=== PATIENT | male | born 1960 | race Caucasian/White ===

== ENCOUNTER 2019-05-03 11:31 | Inpatient (IN) | payer OTHER ==
[~2019-05-03] VITALS: Ht 180.3 cm; Wt 72.6 kg
[~2019-05-03 11:31] MED LIST changes: -ALBU3IS INH; -ALBU90OI INH; -AZIT500 PO; -BENZ100A PO; -FLUTICASONE-SA1 EAC2 INH; -GUAI600T33 PO; -PSEU120ER PO; -Prednisone10 MG PO
[2019-05-03 13:11] LABS: Base Excess Venous 4.5 mmol/L; Bicarbonate Venous 27.4 mmol/L (24.0-30.0); PCO2 Venous 48.2 mmHg (38-42); pH Blood Venous 7.39 (7.34-7.37)
--- NOTE | 2019-05-03 17:09 | NUR ---
TRANSFER NOTE RECEIVED HANDOFF FROM ED NURSE [place]. PT TRANSFERED TO FLOOR WNL. 2 LPM O2. PT IS A&O X4, INDEPENDENT IN THE ROOM. NS GIVEN VIA IV 150 ML/HR. TELEMETRY UNIT ARRIVED TO FLOOR, PLACED BY POND WORKER. PT AND FAMILY ORIENTED TO UNIT.
--- NOTE | 2019-05-03 17:48 | NUR ---
SHIFT SUMMARY PT IS A&O X4. INDEPENDENT IN ROOM. HE WAS ADMITTED FROM ER TODAY. HE DESATURATES WHEN O2 IS REMOVED. NORMALLY ROOM AIR AT HOME. TELEMETRY IS IN PLACE. 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 HIS FAMILY STATES HE WORKS MANY LONG HOURS. 2 LPM O2 VIA NC IN HOSPITAL. HE HAS A GOOD APPETITE AND IS EATING WELL HERE. HE DID REPORT A LOOSE BM FOLLOWING ADMIT TO THIS FLOOR. NS IS INFUSING @ 150 ML/HR.
[2019-05-03 19:37] LABS: Adenovirus Not Detected (NOT DETECT); Bordetella pertussis Not Detected (NOT DETECT); Chlamydophila pneumoniae Not Detected (NOT DETECT); Coronavirus 229E Not Detected (NOT DETECT); Coronavirus HKU1 Not Detected (NOT DETECT); Coronavirus NL63 Not Detected (NOT DETECT); Coronavirus OC43 Not Detected (NOT DETECT); Human Metapneumovirus Not Detected (NOT DETECT); Human Rhinovirus/Enterovirus Detected (NOT DETECT); Influenza A Not Detected (NOT DETECT); Influenza A/2009-H1 Not Detected (NOT DETECT); Influenza A/H1 Not Detected (NOT DETECT); Influenza A/H3 Not Detected (NOT DETECT); Influenza B Not Detected (NOT DETECT); Mycoplasma pneumoniae Not Detected (NOT DETECT); Parainfluenza Virus 1 Not Detected (NOT DETECT); Parainfluenza Virus 2 Not Detected (NOT DETECT); Parainfluenza Virus 3 Not Detected (NOT DETECT); Parainfluenza Virus 4 Not Detected (NOT DETECT); Respiratory Syncytial Virus Not Detected (NOT DETECT)
--- NOTE | 2019-05-04 04:16 | NUR ---
Rn summary: Patient is alert and oriented. Pt primary language is [place] but speaks Rwandan well. Pt has course insp/exp/wheezes upper lobes and fine wheezes lower lobes. Pt has occational course cough. Pt was on 2L at beginning of shift, respirtory increased him to 3 liters after a treatment. When pt sleeping, he is a mouth breather, O2 increased to 4 liters to keep him at 89-90% while at rest. Pt is up to BR with SBA. He is steady on his feet. Pt SOB seems to recover quickly after he is up to BR, sats return to 90 after 1-2 minutes. Pt has only some pain from cough. Telementry has shown NSR rate in the 70-80's. Call light in reach, he uses it appropriately.
[2019-05-04 05:32] LABS: BASOPHILS PERCENT AUTO 0 % (0-2); EOSINOPHILS PERCENT AUTO 0 % (0-6); Hematocrit 41.9 % (37.0-53.0); Hemoglobin 13.7 g/dL (13.5-17.5); IMMATURE GRAN ABSOLUTE AUTO 0.04 K/mm3 (0.00-0.10); IMMATURE GRAN PERCENT AUTO 1 % (0-1); LYMPHOCYTES ABSOLUTE AUTO 0.65 K/mm3 (0.84-5.20); LYMPHOCYTES PERCENT AUTO 8 % (21-46); MONOCYTES ABSOLUTE AUTO 0.33 K/mm3 (0.16-1.47); MONOCYTES PERCENT AUTO 4 % (4-13); Mean Corpuscular HGB 30.6 pg (26.0-34.0); Mean Corpuscular HGB Conc 32.7 g/dL (31.5-36.5); Mean Platelet Volume 11.7 fL (9.1-12.4); NEUTROPHILS ABSOLUTE AUTO 6.79 K/mm3 (1.96-9.15); NEUTROPHILS PERCENT AUTO 87 % (41-73); Platelet Count 154 K/mm3 (150-400); RDW Standard Deviation 48.6 fL (35.1-46.3); Red Blood Cell Count 4.48 M/mm3 (4.30-5.90); White Blood Cell Count 7.81 K/mm3 (4.00-11.30)
[2019-05-04 05:36] LABS: Mean Corpuscular Volume 94 fL (80-100)
[2019-05-04 06:01] LABS: Anion Gap 5 mmol/L (6-16); Blood Urea Nitrogen 14 mg/dL (8-24); Bun/Creatinine Ratio 21.1 (12.0-20.0); CO2, Blood 28 mmol/L (21-32); Calcium, Blood 9.2 mg/dL (8.5-10.1); Chloride, Blood 108 mmol/L (98-108); Creatinine, Blood 0.66 mg/dL (0.60-1.20); Glomerular Filtration Rate >60 (60-); Glucose, Blood 152 mg/dL (70-99); Potassium, Blood 4.5 mmol/L (3.5-5.5); Sodium, Blood 141 mmol/L (136-145)
--- NOTE | 2019-05-04 11:16 | NUR ---
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 HE HAS AN APPOINTMENT FOR MAY 08, [address] BETANCOURT
--- NOTE | 2019-05-04 16:30 | NUR ---
SHIFT SUMMARY PT RECEIVING BREATHING TREATMENTS. PT REQUIRES 5 LPM O2 TO MAINTAIN O2 SAT 91-92%. CONTINUOUS PULSE OX IN PLACE MONITORING. PT IS INDEPENDENT IN THE ROOM. POSITIVE FOR RHINO VIRUS, RECENT EXPOSURE FROM FAMILY. 38 YR SMOKER. TELEMETRY SHOWS NSR @ 73 BPM.
--- NOTE | 2019-05-04 23:34 | NUR ---
pt is smoker 40 plus years currently 1 ppd. positive for rhinovirus and has bioxx due to acute resp failure. He is on Q 6 hr IV antibiotics, nebs and oxygen was at 5 l and sats were 94 to 96%. Decreased to 3 l and sats dropped to 88% intermittantly. increased to 3.5 l nc sat 89 to 91. increased oxygen to 4 l nc sat 91% currently. PT has 6 Daughters age 40 to 30 years. 15 grandchildren. Encouraged smoking cessation, discussed addictive property of tobacco and risks of smoking. Youngest DTR at bedside and supportive.
--- NOTE | 2019-05-05 04:48 | NUR ---
PT continues to need greater than 3 l nc to maintain sats greater than 90%. Oxygen weaned from 5 l nc to 4 l nc. Coarse breath sounds throughout. Latvian lang education provided on hazards of smoking and tips for smoking cessation provided. Continues on IV steroids Q 6 hours. Continues on tele monitor with sinus mary this AM rate 57.
--- NOTE | 2019-05-05 06:16 | NUR ---
weaned PT to 2 l nc 92 persent quickly after exertion with oxygen. 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 Support offered.
--- NOTE | 2019-05-05 17:49 | NUR ---
SHIFT SUMMARY- PT A/OX4, INDEP IN ROOM. PT REPORTS MILD HEADACHE THIS AM. LS DIMINISHED THIS AM AND NOTED TO HAVE EXP WHEEZES THIS AFTERNOON, PT FROM 2L 02 BACK UP TO 4L N/C BY RT THIS AFTERNOON TO MAINTAIN SATS AT 90%. SOB WITH EXERTION. NPC. PT DENIES ANY OTHER COMPLAINTS.TELE NSR AT 64. NO OTHER ACUTE CHANGES THIS SHIFT.
--- NOTE | 2019-05-06 04:21 | NUR ---
SHIFT SUMMARY NO ACUTE CHANGES TO REPORT OVERNIGHT. PT HAS HAD SEVERAL VISITORS THIS SHIFT. PT HAS RESTED SINCE SECOND HALF OF SHIFT. PT STILL REPORTS SOB. LUNGS DIMINISHED IN THE BASES. SATS AVERAGE ABOUT 90% ON 4L. USE OF INCENTIVE SPIROMETER ENCOURAGED. IV SOLUMEDROL ORDERED. PT INDEPENDENT IN THE ROOM. NO ACUTE CHANGES TO REPORT. WILL CONTINUE TO MONITOR AND REPORT TO ONCOMING RN.
--- NOTE | 2019-05-06 12:28 | NUR ---
DR GORDON IN TO SEE PT. DR GORDON NOTIFIED OF FAMILY CONCERN THAT PT IS NOT IMPROVING. CONSULT PLACED FOR PULMONOLOGY, DR SERRATO ANSWERING SERVICE NOTIFIED. CHEST XRAY. FAMILY ALSO REPORT PT HAVING BLACK STOOLS, HGB NORMAL. NOTIFIED PT TO LET ME KNOW THE NEXT TIME HE HAS A BM, DR GORDON ALSO NOTIFIED.
[2019-05-06 13:08] LABS: BASOPHILS ABSOLUTE AUTO 0.01 K/mm3 (0.00-0.23); BASOPHILS PERCENT AUTO 0 % (0-2); EOSINOPHILS PERCENT AUTO 0 % (0-6); Hematocrit 43.2 % (37.0-53.0); Hemoglobin 14.2 g/dL (13.5-17.5); IMMATURE GRAN ABSOLUTE AUTO 0.13 K/mm3 (0.00-0.10); IMMATURE GRAN PERCENT AUTO 1 % (0-1); LYMPHOCYTES ABSOLUTE AUTO 0.67 K/mm3 (0.84-5.20); LYMPHOCYTES PERCENT AUTO 7 % (21-46); MONOCYTES ABSOLUTE AUTO 0.53 K/mm3 (0.16-1.47); MONOCYTES PERCENT AUTO 5 % (4-13); Mean Corpuscular HGB 30.7 pg (26.0-34.0); Mean Corpuscular HGB Conc 32.9 g/dL (31.5-36.5); Mean Corpuscular Volume 93 fL (80-100); Mean Platelet Volume 11.4 fL (9.1-12.4); NEUTROPHILS ABSOLUTE AUTO 8.59 K/mm3 (1.96-9.15); NEUTROPHILS PERCENT AUTO 87 % (41-73); Platelet Count 184 K/mm3 (150-400); RDW Coefficient Variation 14.6 % (11.7-14.2); RDW Standard Deviation 50.6 fL (35.1-46.3); Red Blood Cell Count 4.63 M/mm3 (4.30-5.90); White Blood Cell Count 9.93 K/mm3 (4.00-11.30)
[2019-05-06 13:19] LABS: Anion Gap 4 mmol/L (6-16); Blood Urea Nitrogen 16 mg/dL (8-24); Bun/Creatinine Ratio 22.6 (12.0-20.0); CO2, Blood 30 mmol/L (21-32); Chloride, Blood 105 mmol/L (98-108); Creatinine, Blood 0.71 mg/dL (0.60-1.20); Glomerular Filtration Rate >60 (60-); Glucose, Blood 124 mg/dL (70-99); Potassium, Blood 3.9 mmol/L (3.5-5.5); Sodium, Blood 139 mmol/L (136-145)
--- NOTE | 2019-05-06 15:35 | NUR ---
DR SERRATO IN TO SEE PT.
--- NOTE | 2019-05-06 15:36 | NUR ---
REPORT TO TAMMIE REES. PT TO TRANSFER TO ROOM 357, FAMILY NOTIFIED.
--- NOTE | 2019-05-06 15:36 | NUR ---
SHIFT SUMMARY- PT A/OX4, INDEP IN ROOM. PT DENIES ANY COMPLAINTS TO ME BUT DOES REPORT SOME CHEST PAIN FROM COUGHING TO FAMILY MEMBERS. LS DIMINISHED, REMAINS ON 4L N/C, SOME SOB WITH EXERTION. PULMONOLOGY CONSULTED. F/U CHEST XRAY COMPLETED. PT REPORTS BLACK STOOLS TO FAMILY, HAT PLACED IN TOILET, DR GORDON NOTIFIED AND GUAIAC ORDERED. NO OTHER ACUTE CHANGES THIS SHIFT.
--- NOTE | 2019-05-06 21:57 | NUR ---
STOOL SPECIMEN OBTAINED AND SENT. STOOL APPEARED FORMED BUT DARK COLORED.
[2019-05-06 22:55] LABS: Stool Occult Blood Guaiac 1 Neg (Neg)
--- NOTE | 2019-05-06 23:43 | NUR ---
OCCULT STOOL WAS NEGATIVE.
--- NOTE | 2019-05-07 06:39 | NUR ---
SUMMARY: A/OX4, INDEPENDENT AND CALLS APPROPRIATELY. HE REMAINS ON CONT BIOX BUT WAS TITRATED DOWN TO 3L O2 TO MAINTAIN SPO2 >92%. RESPS E/U AT REST BUT BECOMES SLIGHTLY SOB W/EXERTION AND SLIGHT DESATS TO 88% OBSERVED W/MOBILITY. LS WERE CLEAR BUT TIGHT, SOLUMEDROL RECIEVED PER EMAR AND PT FEELS BX IS IMPROVING. STOOL SPECIMEN OBTAINED/SENT, GUAIC WAS (-). HE REMAINS NSR ON TELEMETRY, 60'S-90'S BPM. NO ACUTE CHANGES, VSS/AFEBRILE. SMOKING CESSATION DISCUSSED W/PT AND FAMILY. WCTM AND REPORT TO DAY RN.
--- NOTE | 2019-05-07 12:04 | NUR ---
TALKED TO ABOUT POSSIBLE SINUS HEADACHE. REFUSES TYLENOL. MD WILL SEE PATIENT NEXT AND DECIDE.
--- NOTE | 2019-05-07 17:55 | NUR ---
ALERT. ORIENTED. TELE REMAINS SR IN 70'S. ON 3 LPM AND CONTINUOUS SAT MONITOR W/SAT 92-95%. EXERTIONAL SOB. IV PATENT. MEDICATED FOR SINUS HEADACHE W/GOOD RESULTS. NO OTHER C/O PAIN. WCTM.
--- NOTE | 2019-05-08 06:18 | NUR ---
SHIFT SUMMARY PT ADMITTED FOR ACUTE RESP FAILURE. HE IS A FULL CODE AND ON TELE HE HAS BEEN SINUS IN THE 70'S THIS SHIFT. HE IS ON 3L NASAL CANNULA AND ON CONTINOUS SATS WHICH HAVE BEEN IN THE 90'S THROUGHOUT THE NIGHT. HE TAKES HIS MEDICATIONS WHOLE AND HIS IV IS IN THE LEFT AC. HE HAS APPEARED TO REST COMFORTABLE THROOUGHOUT THE NIGHT. WILL CONTINUE TO MONITOR.
--- NOTE | 2019-05-08 09:40 | NUR ---
ADVISED NO IV ASSESS AND HAS BEEN ON IV SOLUMEDROL SINCE TUESDAY. ONLY GETS SOLUMEDROL THRU IV. THOUGHT YESTERDAY WAS THAT PATIENT WOULD LEAVE EITHER YESTERDAY OR TODAY. POSSIBLE CHANGE SOLUMEDROL TO P.O. PREDNISONE? WILL DECIDE WHEN SHE SEES PATIENT.
[2019-05-08] MEDS ORDERED: AZIT500 PO (11:40)
[2019-05-08] MEDS ORDERED: BENZ100A PO (11:41)
[2019-05-08] MEDS ORDERED: FLUTICASONE-SA1 EAC2 INH (11:41)
[2019-05-08] MEDS ORDERED: GUAI600T33 PO (11:42)
[2019-05-08] MEDS ORDERED: PSEU120ER PO (11:43)
[2019-05-08] MEDS ORDERED: ALBU3IS INH (11:43)
[2019-05-08] MEDS ORDERED: ALBU90OI INH (11:44)
[2019-05-08] MEDS ORDERED: Prednisone10 MG PO (11:46)
--- NOTE | 2019-05-08 15:12 | NUR ---
REVIEW D'C INSTRUCTIONS. AWARE HAS MULTIPLE RX'S AT [facility]. CARDIO PULMONARY-[facility]ER- IN TO TALK TO PATIENT AND . LINCARE IN TO REVIEW HOW TO USE OXYGEN AND DELIVER SMALL OXYGEN CANISTER. THEY WILL DELIVER NEB MACHINE LATER TO HOUSE. [facility] HAS 2 APPTS, ONE WITH AND ONE WITH PULMONARY. ANSWER ALL QUESTIONS.
--- NOTE | 2019-05-08 16:03 | NUR ---
IN W/C TO POV WITH .
== END 2019-05-08 16:11 | disposition home or self-care (01) | DRG 189 ==
LOC: ER 11:31 → MEDS 16:14 → ENPENDDIS 05-08 10:00 → MEDS 05-08 16:11
PROVIDERS: Emergency Medicine; Internal Medicine; Nurse Practitioner Acute Care; ADMIT Hospitalist
DX: J96.01 Acute respiratory failure with hypoxia (principal); J44.1 Chronic obstructive pulmonary disease with (acute) exacerbation; J20.6 Acute bronchitis due to rhinovirus; R91.8 Other nonspecific abnormal finding of lung field; F17.210 Nicotine dependence, cigarettes, uncomplicated; R73.9 Hyperglycemia, unspecified; T38.0X5A Adverse effect of glucocorticoids and synthetic analogues, initial encounter
CPT/HCPCS: 0099U; 36415; 71046; 80048; 82272; 82803; 83735; 83880; 84145; 84484; 85025; 85379; 94640; 94664; 94760; 94761; 94762; 96361; 96365; 98960; 99285-25; 99407; J1650; J2930; J3475; J7030; J7120

== ENCOUNTER → 2019-05-03 | Outpatient (CLI) | payer OTHER ==
[~2019-05-03] MED LIST: ALBU3IS INH; ALBU90OI INH; AZIT500 PO; BENZ100A PO; CEPH500 PO; FLUTICASONE-SA1 EAC2 INH; GUAI600T33 PO; Norco 5-325 Ta1 EACH PO; PSEU120ER PO; Prednisone10 MG PO
[2019-05-03 09:15] LABS: BASOPHILS ABSOLUTE AUTO 0.03 K/mm3 (0.00-0.23); BASOPHILS PERCENT AUTO 0 % (0-2); EOSINOPHILS ABSOLUTE AUTO 0.03 K/mm3 (0.00-0.68); EOSINOPHILS PERCENT AUTO 0 % (0-6); Hematocrit 44.8 % (37.0-53.0); Hemoglobin 15.2 g/dL (13.5-17.5); IMMATURE GRAN ABSOLUTE AUTO 0.03 K/mm3 (0.00-0.10); IMMATURE GRAN PERCENT AUTO 0 % (0-1); LYMPHOCYTES ABSOLUTE AUTO 0.89 K/mm3 (0.84-5.20); LYMPHOCYTES PERCENT AUTO 10 % (21-46); MONOCYTES ABSOLUTE AUTO 0.67 K/mm3 (0.16-1.47); MONOCYTES PERCENT AUTO 7 % (4-13); Mean Corpuscular HGB 30.9 pg (26.0-34.0); Mean Corpuscular HGB Conc 33.9 g/dL (31.5-36.5); Mean Corpuscular Volume 91 fL (80-100); NEUTROPHILS ABSOLUTE AUTO 7.66 K/mm3 (1.96-9.15); NEUTROPHILS PERCENT AUTO 82 % (41-73); Platelet Count 171 K/mm3 (150-400); RDW Coefficient Variation 13.9 % (11.7-14.2); RDW Standard Deviation 46.8 fL (35.1-46.3); Red Blood Cell Count 4.92 M/mm3 (4.30-5.90); White Blood Cell Count 9.31 K/mm3 (4.00-11.30)
[2019-05-03 09:33] LABS: Alanine Aminotransfer (ALT/SGP 33 U/L (12-78); Albumin, Blood 4.4 g/dL (3.4-5.0); Albumin/Globulin Ratio 1.3 (0.8-1.8); Alk Phos 105 U/L (40-126); Anion Gap 9 mmol/L (6-16); Aspartate Aminotrans (AST/SGOT 40 U/L (12-37); Bilirubin, Total 0.6 mg/dL (0.1-1.0); Blood Urea Nitrogen 8 mg/dL (8-24); Bun/Creatinine Ratio 10.4 (12.0-20.0); CO2, Blood 28 mmol/L (21-32); Calcium, Blood 9.2 mg/dL (8.5-10.1); Chloride, Blood 103 mmol/L (98-108); Creatinine, Blood 0.77 mg/dL (0.60-1.20); Globulin, Blood 3.5 g/dL (2.2-4.0); Glomerular Filtration Rate >60 (60-); Glucose, Blood 106 mg/dL (70-99); Potassium, Blood 4.4 mmol/L (3.5-5.5); Sodium, Blood 140 mmol/L (136-145); Total Protein, Blood 7.9 g/dL (6.4-8.2)
== END | disposition home or self-care (01) ==
LOC: LAB SHORT 09:10 → LAB EV 09:10
PROVIDERS: Physician Assistant
DX: R06.00 Dyspnea, unspecified (principal)
CPT/HCPCS: 80053; 85025